=== PATIENT | female | born 1940 | race Caucasian/White ===

== ENCOUNTER 2018-04-16 06:53 | Inpatient (IN) | END 2018-04-21 20:12 | DRG 470 ==

== ENCOUNTER 2018-04-21 20:27 | Inpatient (IN) | END 2018-04-26 13:30 | disposition home health service (06) | DRG 560 ==

== ENCOUNTER 2018-05-21 11:49 | Observation (INO) | payer OTHER, MEDICARE ==
[2018-05-15 15:59] VITALS: BMI 28.3
[2018-05-21] VITALS (24 sets, daily range): BP systolic 119–193; BP diastolic 55–102; PULSE 74–108; RESP 11–31; Ht 149.9 cm; Wt 65.0 kg
[~2018-05-21] VITALS: Ht 149.9 cm; Wt 65.0 kg
--- NOTE | 2018-05-21 06:02 | HP ---
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 Musculoskeletal: back pain, bone/joint pain (History of total hip replacement recently. Also has history of low back surgery and fusion.) PMH/Family/Social Past Medical History Medications Current Medications Cefazolin Sodium/ Dextrose 50 ml @ 100 mls/hr PRE-OP ONCE IVPB ; Start 05/21/18 at 13:00; Stop 05/21/18 at 13:29 Tranexamic Acid 1000 mg/Dextrose 110 ml @ 200 mls/hr Pre-op ONCE IVPB ; Start 05/21/18 at 13:00; Stop 05/21/18 at 13:32 Sodium Chloride/ Tranexamic Acid INTRA-OP ONCE IRR ; Start 05/21/18 at 13:00; Stop 05/21/18 at 13:01 Bupivacaine HCl/ Morphine Sulfate/ Epinephrine/ Ketorolac Tromethamine/ Clonidine/Sodium Chloride/ Vancomycin HCl INTRA-OP IRR ; Start 05/21/18 at 13:00 Dexamethasone (Decadron) 2 mg PREOP ONCE PO ; Start 05/21/18 at 13:00; Stop 05/21/18 at 13:01 Gabapentin (Neurontin) 300 mg ONCE ONCE PO ; Start 05/21/18 at 13:00; Stop 05/21/18 at 13:01 Coded Allergies: adhesive tape (Verified Allergy, Unknown, 04/16/18) alcohol (Verified Allergy, Unknown, 04/16/18) ALLERGIES: MASTISOL TAPE AND LEVAQUIN PER ELO AT MD OFFICE 04/15 gum mastic (Verified Allergy, Unknown, 04/16/18) ALLERGIES: MASTISOL TAPE AND LEVAQUIN PER ELO AT MD OFFICE 04/15 levofloxacin (Verified Allergy, Unknown, 04/16/18) ALLERGIES: MASTISOL TAPE AND LEVAQUIN PER ELO AT MD OFFICE 04/15 methyl salicylate (Verified Allergy, Unknown, 04/16/18) ALLERGIES: MASTISOL TAPE AND LEVAQUIN PER ELO AT MD OFFICE 04/15 storax (Verified Allergy, Unknown, 04/16/18) ALLERGIES: MASTISOL TAPE AND LEVAQUIN PER ELO AT MD OFFICE 04/15 morphine (Verified Adverse Reaction, Intermediate, nausea and vomiting, 04/18/18) patient can tolerate percocet Past Surgical History History of total hip replacement as well as history of coronary artery disease and diabetes. Family History Significant Family History: no pertinent family hx Social History Alcohol Use: none Smoking Status: Never smoker Drug Use: none Exam/Review of Systems Vital Signs Vitals Blood pressure 160/80, respirations 24, heart rate 80 Exam Exam Healthy-appearing woman Psych: nl mood/affect, anxiety Musculoskeletal: range of motion (Patient has significant difficulty with ambulation. Clinically, her peroneal nerve distribution is dysfunctional with 3/5 strength.) Extremities: edema (She has moderate edema around the prior incision with a palpable area of swelling consistent with a small hematoma anteriorly.) COCO COLEMAN MD May 21, 2018 06:02
--- NOTE | 2018-05-21 06:02 | HPN ---
Date/Time of Note Date/Time of Note DATE: 05/21/18 TIME: 06:02 Interval H&P Admission Note Pt. seen H&P reviewed: No system changes COCO COLEMAN MD May 21, 2018 06:02
--- NOTE | 2018-05-21 06:07 | OPR ---
Date/Time of Note Date/Time of Note DATE: 05/21/18 TIME: 06:02 Operative Report Procedure Date: May 21, 2018 Preoperative Diagnosis Sciatic nerve palsy following total hip replacement, right hip Postoperative Diagnosis 1. Right hip sciatic nerve palsy 2. Right hip hematoma following total hip replacement Operation/Procedure Performed 1. Right hip sciatic nerve neurolysis Surgeon see signature line [employer] Dakotah Hernandez DO Anesthesia Type: general Estimated Blood Loss: 10 - 50 ml's Transfusion none Specimen None Grafts/Implants none Complications none Pt Condition Post Procedure: stable Disposition: PACU Procedure Description [employer] FLATBED DRIVER SURGEON: Dakotah Hernandez DO was asked to be present at my request as a result of the complexity associated with this procedure including positioning of the extremity, positioning of the instrumentation and protection of the neurovascular structures. In my opinion, the assistance offered by a neurosurgical physician assistant is insufficient and Dr. Hernandez should be compensated for his time. PROCEDURE IN DETAIL: Following the administration of general endotracheal anesthesia supplemented with a spinal anesthetic, the patient was placed in the left lateral decubitus position with all prominences in the axillary fold being padded. Examination revealed that the prior surgical wound was well-healed with no drainage. There is a small palpable swelling anterolaterally directly over that incision and slightly more posteriorly. The right lower extremity was then prepped and draped in the usual sterile fashion. Attention was directed to the lateral aspect where an incision was then made directly over the lateral buttocks. The incision was carried through subcutaneous tissues and a hematoma was then evacuated from the more anterior a spect of the wound. This was approximately 50 cc of what appeared to be old blood. Further laterally and posteriorly, the iliotibial band was then incised and the posterior aspect of the hip evaluated. Further fluid was then evacuated from the area consistent with a long-standing hematoma from the prior procedure. The sciatic nerve was then evaluated this was noted to have a moderate amount of scar around the nerve along the trochanter. It was mobilized very carefully with most of the perineural fat being preserved. Proximally, the area was then evaluated all the way up to the sciatic notch where the piriformis was elevated and seen to have no significant tight tissue around it. Distally, the sciatic nerve was then mobilized all the way below the area of the radius brett sling. There is no significant distal entrapment. The wound was then thoroughly irrigated once again. Closure was obtained with a series of #2 deep stitches for closure of the soft tissues followed by closure of the subcutaneous tissues using 2-0 Vicryl. Skin was closed using 4-0 Monocryl and subsequently a Prenio dressing was applied. Estimated blood loss for the procedure was 50 cc. COCO COLEMAN MD May 21, 2018 06:07
[~2018-05-21 11:49] MED LIST: DESFLURANE 15 MIN ONE; DOXY100T20 PO; PRED5TAB PO
[2018-05-21] MEDS ORDERED: ZOLP12.54 PO (12:24)
[2018-05-21] MEDS ORDERED: TRANEXAMIC ACID 1,000 MG in DEXTROSE 5% 100 ML IVPB ONE (13:00)
[2018-05-21] MEDS ORDERED: SOD CHLORIDE 0.9% 100 ML, TRANEXAMIC ACID 3,000 MG IRR ONE ×2 (13:00)
[2018-05-21] MEDS ORDERED: GABAPENTIN 300 MG CAP PO ONE (13:00)
[2018-05-21] MEDS ORDERED: DEXAMETHASONE 1 MG TAB PO ONE (13:00)
[2018-05-21] MEDS ORDERED: CEFAZOLIN 2 GM/50 ML (PMX) 50 ML IVPB ONE (13:00)
[2018-05-21] MEDS ORDERED: BUPIVACAINE 0.5% (SDV) 30 ML, morphine SULFATE (PF) 8 MG, EPINEPHrine 0.3 MG, KETOROLAC... IRR SCH ×7 (13:00)
[2018-05-21] MEDS ORDERED: HYDROmorphONE 0.5 MG/0.5 ML SYG IV SCH (13:19)
[2018-05-21] MEDS ORDERED: HYDROmorphONE 1 MG/ML SYG IV SCH (13:28)
[2018-05-21] MEDS: HYDROmorphONE 0.5 MG/0.5 ML SYG IV SCH ×2 (13:46→14:06)
[2018-05-21] MEDS ORDERED: PROPOFOL 20 ML ONE (15:06)
[2018-05-21] MEDS ORDERED: ROCURONIUM 50 MG INJ ONE (15:06)
[2018-05-21] MEDS ORDERED: CEFAZOLIN 1 GM INJ ONE (15:06)
[2018-05-21] MEDS ORDERED: NEOSTIGMINE 3 MG/3 ML SYRINGE ONE (15:06)
[2018-05-21] MEDS ORDERED: GLYCOPYRROLATE 0.4 MG INJ ONE (15:06)
[2018-05-21] MEDS ORDERED: MIDAZOLAM 1 MG/ML 2 ML INJ ONE (15:07)
[2018-05-21] MEDS ORDERED: ONDANSETRON 4 MG INJ ONE (15:07)
[2018-05-21] MEDS ORDERED: DEXAMETHASONE 4 MG/ML 1 ML INJ ONE (15:07)
[2018-05-21] MEDS ORDERED: FENTAnyl 50 MCG/ML VIAL ONE (15:07)
--- NOTE | 2018-05-21 15:36 | PREAC ---
Date/Time of Note Date/Time of Note DATE: 05/21/18 TIME: 15:35 Anesthesia Eval and Record Evaluation Time Pre-Procedure Interview DATE: 05/21/18 TIME: 15:35 Age 78 Sex female NPO: 8 hrs Preoperative diagnosis right sciatica Planned procedure right hip open sciatic neurolysis Past Medical History Past Medical History: Includes (polymyalgia rheumatica) Surgery & Anesthesia Issues No known issue Meds Anticoagulation: No Beta Sarika within 24 hr: No Reason Beta Sarika not given: Pt. not on B-Sarika Reported Medications Zolpidem Tartrate* (Zolpidem Tartrate* ER) 12.5 Mg Tab.mphase, 12.5 MG PO HS PRN for INSOMNIA, #30 TAB.SA 05/21/18 Prednisone* (Prednisone*) 5 Mg Tab, 5 MG PO DAILY, TAB 04/16/18 Discontinued Reported Medications Doxycycline Hyclate* (Doxycycline Hyclate*) 100 Mg Tablet.dr, 100 MG PO BID, TAB STARTED 04-14-18 FOR 5 DAYS 04/16/18 Current Medications Bupivacaine HCl/ Morphine Sulfate/ Epinephrine/ Ketorolac Tromethamine/ Clonidine/Sodium Chloride/ Vancomycin HCl INTRA-OP IRR ; Start 05/21/18 at 13:00 Meds reviewed: Yes Allergies Coded Allergies: adhesive tape (Verified Allergy, Unknown, 05/21/18) alcohol (Verified Allergy, Unknown, 05/21/18) ALLERGIES: MASTISOL TAPE AND LEVAQUIN PER ELO AT MD OFFICE 04/15 gum mastic (Verified Allergy, Unknown, 05/21/18) ALLERGIES: MASTISOL TAPE AND LEVAQUIN PER ELO AT MD OFFICE 04/15 levofloxacin (Verified Allergy, Unknown, 05/21/18) ALLERGIES: MASTISOL TAPE AND LEVAQUIN PER ELO AT MD OFFICE 04/15 methyl salicylate (Verified Allergy, Unknown, 05/21/18) ALLERGIES: MASTISOL TAPE AND LEVAQUIN PER ELO AT MD OFFICE 04/15 storax (Verified Allergy, Unknown, 05/21/18) ALLERGIES: MASTISOL TAPE AND LEVAQUIN PER ELO AT MD OFFICE 04/15 morphine (Verified Adverse Reaction, Intermediate, nausea and vomiting, 05/21/18) patient can tolerate percocet Allergies Reviewed: Yes Labs/Studies Labs Reviewed: Reviewed by anesthesiologist Result Diagram: 05/21/18 1310 05/21/18 1310 Laboratory Tests 05/21/18 13:10 test: N/A Studies: ECG (nl), CXR (elevated right hemidiaphragm) Pre-procedure Exam Last vitals Vital Signs Date Temp Pulse Resp B/P (MAP) Pulse Ox O2 O2 Flow FiO2 Time Delivery Rate 05/21/18 97.8 91 20 140/68 99 14:41 (92) Airway: Adequate mouth opening, Adequate thyromental dist Mallampati: Mallampati II Teeth: Normal Lung: Normal Heart: Normal ASA Physical Status ASA physical status: 2 Emergency: None Planned Anesthetic General/MAC: ETT Pre-operative Attestations Prior to commencing anesthesia and surgery, the patient was re-evaluated, there was verification of: *The patient's identity *The results of appropriate recent lab work and preoperative vital signs *The above evaluation not changing prior to induction *Anesthetic plan, risk benefits, alternative and complications discussed with patient/family; questions answered; patient/family understands, accepts and wishes to proceed. Jose Chaudhary M.D. May 21, 2018 15:36
[2018-05-21] MEDS ORDERED: IPRATROPIUM (NEB) 0.5 MG/2.5 ML AMP HHN PRN (16:00)
[2018-05-21] MEDS ORDERED: MIDAZOLAM 1 MG/ML 2 ML INJ IV PRN (16:00)
[2018-05-21] MEDS ORDERED: ALBUTEROL 0.083% (NEB) 2.5 MG/3 ML AMP HHN PRN (16:00)
[2018-05-21] MEDS ORDERED: EPHEDrine SULFATE 50 MG/5 ML SYG IV PRN (16:00)
[2018-05-21] MEDS ORDERED: FENTAnyl 50 MCG/ML VIAL IV PRN ×3 (16:00)
[2018-05-21] MEDS ORDERED: DIPHENHYDRAMINE 50 MG INJ IV PRN ×2 (16:00→17:30)
[2018-05-21] MEDS ORDERED: MEPERIDINE 25 MG INJ IV PRN (16:00)
[2018-05-21] MEDS ORDERED: hydrALAzine 20 MG INJ IV PRN (16:00)
[2018-05-21] MEDS ORDERED: HYDROmorphONE 1 MG/5 ML IV SYRINGE IV PRN ×3 (16:00)
[2018-05-21] MEDS ORDERED: LABETALOL HCL 20MG INJ IV PRN (16:00)
[2018-05-21] MEDS ORDERED: ONDANSETRON 4 MG INJ IV PRN ×2 (16:00→17:30)
[2018-05-21] MEDS ORDERED: TRIMETHOBENZAMIDE 100 MG/ML VIAL IM PRN (16:00)
--- NOTE | 2018-05-21 17:20 | PAC ---
Date/Time of Note Date/Time of Note DATE: 05/21/18 TIME: 17:20 Post-Anesthesia Notes Post-Anesthesia Note Last documented vital signs Vital Signs Date Temp Pulse Resp B/P (MAP) Pulse Ox O2 O2 Flow FiO2 Time Delivery Rate 05/21/18 97.8 91 20 140/68 99 14:41 (92) Activity: WNL Respiratory function: WNL Cardiovascular function: WNL Mental status: Baseline Pain reasonably controlled: Yes Hydration appropriate: Yes Nausea/Vomiting absent: Yes Jose Chaudhary M.D. May 21, 2018 17:20
[2018-05-21] MEDS ORDERED: ZOLPIDEM 5 MG TAB PO PRN (17:30)
[2018-05-21] MEDS ORDERED: MAGNESIUM HYDROXIDE 30ML CUP PO PRN (17:30)
[2018-05-21] MEDS ORDERED: oxyCODONE 5 MG TAB PO PRN (17:30)
[2018-05-21] MEDS ORDERED: NACL 0.9% 3 ML SYG IV SCH (17:30)
[2018-05-21] MEDS: DEXAMETHASONE 2 MG TAB PO SCH ×2 (17:44→23:26)
[2018-05-21] MEDS: CEFAZOLIN 1 GM/50 ML (PMX) 50 ML IVPB SCH (17:45)
--- NOTE | 2018-05-21 18:14 | NUR ---
PACU NOTES: PATIENT AWAKE AND ALERT. ON ROOM AIR 99% S/P RIGHT HIP OPEN SCIATIC NEUROLYSIS WITH PRENEO DRESSING NO BLEEDING NO DRAIN, ABLE TO MOVE AND REPOSITION SELF, W/ COMPLAIN OF PAIN MEDICATED WITH FENATANYL AND DILAUDID IV. ZOFRAN 4 MG IV GIVEN. ICE PACK IN PLACED. TOLERATED P.O FLUIDS W/ MEDICATION.BEDPAN GIVEN ABLE TO VOID ABOUT 20 ML. NEEDS ATTENDED. SCD PLACED. FAMILY NOTIFIED OF TRANSFER TO ROOM 408. PAIN RELIEVED 06/28.
--- NOTE | 2018-05-21 18:30 | NUR ---
NRSG NOTE Report received from Sasha in pacu. Will send pt at 1930. Will endorse to lieutenant shift supervisor RN.
--- NOTE | 2018-05-21 19:41 | RADRPT ---
Vent Rate: 81 bpm RR Interval: 0 msec MI Interval: 136 msec QRS Duration: 76 msec QT Interval: 372 msec QTC Interval: 432 msec P-R-T [place]: 43 - 28 - 40 degrees Sinus rhythm with premature atrial complexes Otherwise normal ECG Electronically Signed By: Neel Szymanski [id number]
[2018-05-21] MEDS: HYDROmorphONE 1 MG/ML SYG IV PRN (21:30)
[2018-05-21] MEDS: ACETAMINOPHEN 1000MG/100ML IV 100 ML IVPB SCH (21:30)
[2018-05-21] MEDS: GABAPENTIN 300 MG CAP PO SCH (21:31)
[2018-05-21] MEDS: LACTATED RINGER'S 1,000 ML IV SCH (21:31)
[2018-05-21] MEDS: SENNA/DOCUSATE NA (8.6MG/50MG) TAB PO SCH (21:31)
--- NOTE | 2018-05-21 22:26 | NUR ---
PT ARRIVED TO THE UNIT FROM PACU WITH VSS. PT HAD NO C/O PAIN, PT WAS ORIENTED TO THE ROOM, CALL RAMON PLACED NEAR PT AND POST -OP VS PER PROTOCOL WAS INITIATED, WILL CONT PLAN OF CARE FOR PT.
[2018-05-22 00:10] VITALS: BP 148/68; PULSE 78; RESP 20
[2018-05-22] MEDS: HYDROmorphONE 1 MG/ML SYG IV PRN (01:36)
[2018-05-22] MEDS: CEFAZOLIN 1 GM/50 ML (PMX) 50 ML IVPB SCH ×2 (01:36→09:49)
[2018-05-22] MEDS: LACTATED RINGER'S 1,000 ML IV SCH ×4 (03:04→21:35)
--- NOTE | 2018-05-22 04:46 | NUR ---
END OF SHIFT: PT IS POD #1 S/P RIGHT HIP SCIATICNEUROLYSIS. PT DSG REMAINS C/D/I THIS SHIFT. PTS PAIN WAS CONTROLLED WITH CURRENT PAIN REGIME. PT IS DUE TO HAVE PT EVAL THIS MORNING WILL CONT PLAN CARE FOR PT.
[2018-05-22] MEDS: DEXAMETHASONE 2 MG TAB PO SCH ×2 (05:27→12:51)
[2018-05-22] MEDS: ACETAMINOPHEN 1000MG/100ML IV 100 ML IVPB SCH ×2 (05:27→15:29)
--- NOTE | 2018-05-22 05:48 | PDOCDIS ---
Discharge Instructions DIAGNOSIS Discharge Diagnosis Sciatic nerve entrapment CONDITION [id number] Patient Condition: Epuck1r Good HOME CARE INSTRUCTIONS: [id number] Diet Instructions: [id number] Regular Ebypa2Hz Special Diet: Tculo3l CLEAR LIQUID ACTIVITY: [id number] Activity Restrictions: [id number] No Restrictions [id number] Bathing Restrictions: [id number] Shower FOLLOW UP/APPOINTMENTS Follow-up Plan 2 weeks in the office SCHOOL/WORK RELEASE May return to School/Work with: With Restrictions School/Work Release Comment: Assistive devices as necessary COCO COLEMAN MD May 22, 2018 05:48
--- NOTE | 2018-05-22 05:49 | DS ---
Date/Time of Note Date/Time of Note DATE: 05/22/18 TIME: 05:48 Discharge Summary Admission/Discharge Info Admit Date/Time May 21, 2018 at 17:06 Discharge Date/Time May 22, 2018 Discharge Diagnosis Sciatic nerve entrapment Patient Condition: Good Hx of Present Illness History of right lower extremity sciatic nerve palsy following total hip r eplacement Hospital Course Patient underwent uncomplicated procedure. Underwent therapy the next morning and was discharged Home Meds Reported Medications Zolpidem Tartrate* (Zolpidem Tartrate* ER) 12.5 Mg Tab.mphase, 12.5 MG PO HS PRN for INSOMNIA, #30 TAB.SA 05/21/18 Prednisone* (Prednisone*) 5 Mg Tab, 5 MG PO DAILY, TAB 04/16/18 Discontinued Reported Medications Doxycycline Hyclate* (Doxycycline Hyclate*) 100 Mg Tablet.dr, 100 MG PO BID, TAB STARTED 04-14-18 FOR 5 DAYS 04/16/18 Follow-up Plan 2 weeks in the office Primary Care Provider Care Physician No Primary Pending Labs Laboratory Tests Test 05/21/18 13:10 White Blood Count 8.0 10^3/ul (4.8-10.8) Red Blood Count 3.99 10^6/ul (4.20-5.40) Hemoglobin 12.1 g/dl (12.0-16.0) Hematocrit 36.2 % (37.0-47.0) Mean Corpuscular Volume 90.7 fl (82.0-101.0) Mean Corpuscular Hemoglobin 30.3 pg (29.0-33.0) Mean Corpuscular Hemoglobin Concent 33.4 g/dl (32.0-37.0) Red Cell Distribution Width 13.3 % (11.5-14.5) Platelet Count 222 10^3/UL (140-415) Mean Platelet Volume 10.1 fl (7.4-10.4) Immature Granulocytes % 0.400 % (0.001-0.429) Neutrophils % 76.3 % (39.0-77.0) Lymphocytes % 15.8 % (15.0-51.0) Monocytes % 6.3 % (0.0-11.0) Eosinophils % 0.4 % (0.0-7.0) Basophils % 0.8 % (0.0-2.0) Nucleated Red Blood Cells % 0.0 /100WBC (0.0-0.0) Immature Granulocytes # 0.030 10^3/ul (0.0-0.031) Neutrophils # 6.1 10^3/ul (1.6-7.5) Lymphocytes # 1.3 10^3/ul (0.8-2.9) Monocytes # 0.5 10^3/ul (0.3-0.9) Eosinophils # 0.0 10^3/ul (0.0-0.5) Basophils # 0.1 10^3/ul (0.0-0.1) Nucleated Red Blood Cells # 0.0 10^3/ul (0.0-0.0) Prothrombin Time 13.1 Sec (11.9-14.9) Prothrombin Time Ratio 1.0 INR International Normalized Ratio 0.98 Activated Partial Thromboplast Time 35.0 Sec (23.0-35.0) Sodium Level 139 mmol/L (135-144) Potassium Level 3.4 mmol/L (3.5-5.1) Chloride Level 108 mmol/L (97-110) Carbon Dioxide Level 22 mmol/L (21-31) Anion Gap 9 (5-13) Blood Urea Nitrogen 27 mg/dl (7-20) Creatinine 0.62 mg/dl (0.44-1.00) Est Glomerular Filtrat Rate mL/min mL/min (>60) Glucose Level 111 mg/dl (70-220) Calcium Level 10.2 mg/dl (8.4-10.2) COCO COLEMAN MD May 22, 2018 05:49
--- NOTE | 2018-05-22 05:50 | PN ---
Date/Time of Note Date/Time of Note DATE: 05/22/18 TIME: 05:49 Subjective Awake and alert this morning. Overall, she states that she feels a lot less pain. She is starting to feel her toes better and is not having any significant searing pain. I explained to her the situation and feel that her nerve was probably trapped and perhaps she had a hematoma postoperatively that created the nerve issue. With the decompression, she will hopefully improve over the next few weeks and continue to make progress. Objective Vitals Vital Signs Date Temp Pulse Resp B/P (MAP) Pulse Ox O2 O2 Flow FiO2 Time Delivery Rate 05/22/18 98.3 78 20 148/68 95 00:10 (94) 05/21/18 Nasal 2.0 22:07 Cannula Intake and Output 05/21/18 05/21/18 05/22/18 1515:00 23:00 07:00 IntakeIntake Total 970 ml 150 ml OutputOutput Total 120 ml 300 ml BalanceBalance 850 ml -150 ml Wound is clean and dry. Neurologically, There are no signs of DVT. Results Result Diagram: 05/21/18 1310 05/21/18 1310 Medications Medications Current Medications Prednisone (Prednisone) 5 mg DAILY PO ; Start 05/22/18 at 09:00 Lactated Ringer's 1,000 ml @ 100 mls/hr Q10H IV Last administered on 05/21/18at 21:31; Admin Dose 100 MLS/HR; Start 05/21/18 at 17:04 Cefazolin Sodium 50 ml @ 100 mls/hr Q8H IVPB Last administered on 05/22/18at 01:36; Admin Dose 100 MLS/HR; Start 05/21/18 at 17:30; Stop 05/22/18 at 09:59 Senna/Docusate Sodium (Senokot-S) 1 tab BID PO Last administered on 05/21/18at 21:31; Admin Dose 1 TAB; Start 05/21/18 at 21:00 Simethicone (Mylicon) 80 mg TID PRN PO DISTENSION/GAS/BLOATING; Start 05/21/18 a t 17:30 Magnesium Hydroxide (Milk Of Mag) 30 ml BID PRN PO CONSTIPATION; Start 05/21/18 at 17:30 Magnesium Hydroxide (Milk Of Mag) 30 ml HS PO ; Start 05/23/18 at 21:00 Dexamethasone (Decadron) 2 mg Q6 PO Last administered on 05/22/18at 05:27; Admin Dose 2 MG; Start 05/21/18 at 18:00; Stop 05/22/18 at 12:01 Gabapentin (Neurontin) 300 mg HS PO Last administered on 05/21/18at 21:31; Admin Dose 300 MG; Start 05/21/18 at 21:00 Acetaminophen 100 ml @ 400 mls/hr Q8 IVPB Last administered on 05/22/18at 05:27; Admin Dose 400 MLS/HR; Start 05/21/18 at 22:00; Stop 05/22/18 at 14:14 Oxycodone HCl (Roxicodone) 15 mg Q4H PRN PO PAIN; Start 05/21/18 at 17:30 Oxycodone HCl (Roxicodone) 10 mg Q4H PRN PO PAIN; Start 05/21/18 at 17:30 Oxycodone HCl (Roxicodone) 5 mg Q4H PRN PO PAIN; Start 05/21/18 at 17:30 Hydromorphone HCl (Dilaudid) 1 mg Q4H PRN IV BREAKTHROUGH PAIN Last administered on 05/22/18at 01:36; Admin Dose 1 MG; Start 05/21/18 at 17:30 Ondansetron HCl (Zofran Inj) 4 mg Q6H PRN IV NAUSEA AND/OR VOMITING; Start 05/21/18 at 17:30 Diphenhydramine HCl (Benadryl) 25 mg Q6H PRN IV PRURITUS; Start 05/21/18 at 17:30 Zolpidem Tartrate (Ambien) 10 mg HS PRN PO INSOMNIA; Start 05/21/18 at 17:30 IV Flush (NS 3 ml) 3 ml per protocol IV ; Start 05/21/18 at 17:30 Aspirin (Ecotrin) 325 mg DAILY PO ; Start 05/22/18 at 09:00 VTE Prophylaxis Risk score (from Nsg)>0 risk: 10 SCD applied (from Nsg): Yes SCD contraindication: low risk/ambulating Lines/Catheters IV Catheter Type: Saline Lock Zaman in Place: No Assessment/Plan Hospital Course Patient underwent uncomplicated procedure. Underwent therapy the next morning and was discharged Assessment/Plan Assessment: Status post sciatic neuro lysis following total hip replacement Plan: She will begin to ambulate and progress later today. She will be discharged if she is cleared by therapy. COCO COLEMAN MD May 22, 2018 05:50
[2018-05-22 07:46] VITALS: BP 143/69; PULSE 72; RESP 18
[2018-05-22] MEDS: predniSONE 5 MG TAB PO SCH (09:10)
[2018-05-22] MEDS: ASPIRIN (EC) 325 MG TAB PO SCH (09:10)
[2018-05-22] MEDS: oxyCODONE 5 MG TAB PO PRN ×5 (09:13→23:18)
--- NOTE | 2018-05-22 09:31 | NUR ---
no senna/colace available, pharmacy [facility] and will deliver. Patient aware RN will give when pharmacy delivers.
[2018-05-22] MEDS: SENNA/DOCUSATE NA (8.6MG/50MG) TAB PO SCH ×2 (09:51→21:25)
--- NOTE | 2018-05-22 11:20 | NUR ---
PT [facility] Patient: Montse Michel : 1940 Age/Sex: 78/F Unit#: [id number] Room/Bed: 408/A User: Allen Bergeron PT Date: 05/22/18 11:16 Type: PT Technical Record Therapy day number 1 Evaluation Start Time 10:25 Evaluation Total Time 0 min Subjective Denies pain Pain Scale NUMERIC Pain Intensity 0 (0-10) Patient Stated Goal for Pain Relief 0 (0-10) Pain Level Comment denies pain Pre Treatment Vital Signs Stable Yes Exercise Assessment Label Bilat Lower Extremity Exercise Type Active ROM Additional Exercise Comments seated B APs, heel slides Supine to Sit Minimum Assist Transfer Sit to Stand Ability Contact Guard Assist Bed Mobility Sit to Supine Moderate Assist Bed Transfer Ability Contact Guard Assist Chair Transfer Ability Contact Guard Assist Toileting Ability Supervised Sitting Tolerance 25 min Additional Mobility Comments transfer with FWW Patient uses wheelchair Not Applicable Gait Assist Levels Minimum Assist Assistive Devices Front Wheel Walker Ambulation Distance 1 feet Additional Gait Comments stand-step transfer; gait TBA when pt brings AFO/ankle brace Weight Bearing Assessment Label Bilat Lower Extremity Weight Bearing Status Weight Bearing as Naima Additional Stairs Assist Comments TBA Static Sitting Balance Good Dynamic Sitting Balance Fair plus Standing Static Balance Fair Dynamic Standing Balance Fair Additional Balance Assessments Comments with FWW Safety Judgement Fair Activity Tolerance Fair Equipment Present A pump IV pump Post Treatment Pain Intensity 0 0-10 Variance Documentation SEE PT EVAL NOTE PT Technical Record Comment PT EVAL Pt is a 78 yo F with PMH of CAD, DM, recent R ROCK (04/16/18) anterior approach with acute sciatic nerve palsy who is now S/P R hip sciatic nerve lysis. Pt received in 4W, med/surg. Precautions: fall precautions, anterior hip precautions (no hip ext 6 weeks from 04/16/18) PLOF: Pt lives with spouse in 3-story town home with flight of stairs to enter (railing on R when ascending). Pt ambulatory with pediatric FWW, occassionaly with SPC, and used a AFO/ankle brace due to foot drop. Pt owns a shower chair and has shower bars installed. Assistance to negotiate stairs at home, reporting her family carried her up upon d/c home from previous hospitalization. CLOF: RAHEL Fiore cleared pt for PT evaluation. Pt received in bed, vitals assessed and stable, agreeable to PT eval. Pt educated in purpose of PT eval and WB status (WBAT). Noted with ROM/strength assessment, pt with R foot drop, limited R knee and hip ROM due to increased pain with movement (pt pre-medicated). Pt did not have AFO present in room, reported will bring it later. bed mobility and tranfser training as descibed above. Noted with transfer (stand-step using FWW), pt with difficulty bearing weight in R LE, preferring to pivot/twist on L LE to proceed forward. Pt educated in using B UE to unload R LE and reduce pain. Noted pt urinated during transfer to commode, pt cleansed, urinated in commode, and returned to bed with bed alarm activated, all needs in reach, no signs of distress. RN notified of pt's status. Recommendation: Pt mobility limited due to R hip/LE pain, requiring min-modA for bed mobility tasks and Austin to perform transfer to bedside commode. Gait training limited due to pt without AFO/ankle brace at this time. Pt hesitant to bear weight in R LE and actively lift R LE for bed mobility. Pt will benefit from additional skilled PT for further mobility training. Gait/stairs TBA. D/c recommendation pending pt progress. Pt already owns FWW, shower chair; may benefit from 3:1 commode. plan: Continue c PT POC ( BID x 6), stair and gait training in pm. PT CLEARED TO TRANSFER TO BEDSIDE COMMODE WITH RELAY SHOP SUPERVISOR
[2018-05-22 14:00] VITALS: BP 127/58; PULSE 74; RESP 18
--- NOTE | 2018-05-22 15:20 | NUR ---
PT NOTE Therapy day number 1 Subjective Current complaint of pain Pain Scale FACES Pain Intensity 5 (0-10) Patient Stated Goal for Pain Relief 0 (0-10) Pain Level Comment R hip Pre Treatment Vital Signs Stable Yes Exercise Assessment Label Bilat Lower Extremity Exercise Type Active ROM Additional Exercise Comments semi-supine B APs (R AAROM), heel slides Exercise Start Time 14:10 Exercise End Time 14:19 Total Exercise Time 9 min (8-127) Transfer Training Start Time 14:19 Supine to Sit Stand by Assist Transfer Sit to Stand Ability Stand by Assist Bed Mobility Sit to Supine Contact Guard Assist Bed Transfer Ability Stand by Assist Chair Transfer Ability Stand by Assist Toileting Ability Modified Independent Sitting Tolerance 20 min Additional Mobility Comments transfer with FWW, AFO Transfer Training End Time 14:49 Total Transfer Training Time 30 min (8-127) Gait Training Start Time 14:49 Gait Assist Levels Stand by Assist Assistive Devices Front Wheel Walker Ambulation Distance 70 feet Additional Gait Comments step-to gait pattern, antalgic, steady, stable, increased UE support Gait Training End Time 15:05 Total Gait Training Treatment Time 16 min (8127) Weight Bearing Assessment Label Bilat Lower Extremity Weight Bearing Status Weight Bearing as Naima Stair Training Start Time 15:05 Stair Climbing Ability Moderate Assist Number of Stairs 4 Stairs Additional Stairs Assist Comments 4 steps and 3 steps with sitting rest break, see PT note for details Stair Training End Time 15:20 Total Stair Training Time 15 min (8127) Static Sitting Balance Good Dynamic Sitting Balance Good Standing Static Balance Fair plus Dynamic Standing Balance Fair plus Additional Balance Assessments Comments with FWW Safety Judgement Fair Activity Tolerance Good Equipment Present A pump IV pump Additional Equipment Present R AFO Post Treatment Pain Intensity 5 0-10 Variance Documentation SEE PT NOTE Total Treament Time 70 min (8127) Total Minutes 70 Total Units 5 PT Technical Record Comment PT NOTE S: Pt reported feeling better than morning O: Pt received in bed, vitals assessed and stable, agreeable to PT session. Pt participated in interventions above, including: transfer x 2 from bed to bedside commode using FWW, toileting with SPV using bedside commode, ambulation of 70' with FWW and AFO, stair training 4 steps and 3 steps with sitting rest break. Noted with stair training pt using R railing with B UE, step-to gait pattern, decreased balance/increased R LE pain with R stance, 1 LOB with modA to correct, number of steps limited due to pt fatigue. Pt returned to bed, all needs in reach, bed alarm activated, no signs of distress. RN notified of pt's functional status. A: Pt with significant improvement in bed mobility, transfers, and gait compared to morning, now presenting at SBA level for these tasks. Improved gait with use of AFO and FWW (70'). Pt with moderate balance deficits when negotiating steps with 1 LOB requiring modA to correct and requiring Austin and close guarding, especially when ascending. Pt only tolerated total of 7 steps this session with a sitting rest break, note that pt has a 20 step stair case in home to bedroom. D/C recommendation per MD recommendation, pt may need 3:1 commode with d/c home. Plan: Continue c PT POC, continue stair training, family training on guarding pt when ascending and descending steps PT CLEARED TO AMB TO RESTROOM WITH NURSING STAFF AND FWW
[2018-05-22 20:40] VITALS: BP 122/62; PULSE 77; RESP 20
[2018-05-22] MEDS: GABAPENTIN 300 MG CAP PO SCH (21:25)
--- NOTE | 2018-05-23 00:43 | NUR ---
REPORT GIVEN TO HORTENCIA MCGINNIS FOR CONTINUITY OF CARE. PT IN BED DOZING OFF, NO SS DISCOMFORT NOTED.
[2018-05-23 02:00] VITALS: BP 120/61; PULSE 74; RESP 18
--- NOTE | 2018-05-23 06:38 | NUR ---
NRSG NOTE: RECEIVED PT FROM RAYMUNDO MCGINNIS IN STABLE CONDITION. NO ACUTE DISTRESS. NO SOB. VSS. DENIES PAIN. ASSISTED TO BEDSIDE COMMODE NEEDED. PAIN MGMT EFFECTIVE. RESTING COMFORTABLY. CONTINUE DISCHARGE PLANNING TODAY
[2018-05-23 07:51] VITALS: BP 141/70; PULSE 69; RESP 18
[2018-05-23] MEDS: LACTATED RINGER'S 1,000 ML IV SCH (09:04)
[2018-05-23] MEDS: ASPIRIN (EC) 325 MG TAB PO SCH (09:15)
[2018-05-23] MEDS: SENNA/DOCUSATE NA (8.6MG/50MG) TAB PO SCH (09:15)
[2018-05-23] MEDS: predniSONE 5 MG TAB PO SCH (09:15)
[2018-05-23] MEDS: oxyCODONE 5 MG TAB PO PRN ×2 (09:16→13:38)
--- NOTE | 2018-05-23 09:21 | PN ---
Date/Time of Note Date/Time of Note DATE: 05/23/18 TIME: 09:20 Subjective Comfortable this morning. Ready to begin ambulation independently. She feels a lot more comfortable resting. In addition, she has not had any of the significant radiation pain that she was feeling preoperatively. Objective Vitals Vital Signs Date Temp Pulse Resp B/P (MAP) Pulse Ox O2 O2 Flow FiO2 Time Delivery Rate 05/23/18 98.5 69 18 141/70 96 07:51 (93) 05/21/18 Nasal 2.0 22:07 Cannula Intake and Output 05/22/18 05/22/18 05/23/18 1515:00 23:00 07:00 IntakeIntake Total 250 ml 1400 ml 1140 ml OutputOutput Total 300 ml BalanceBalance 250 ml 1100 ml 1140 ml Her wound is clean and dry. Neurologically, she has no radiating pain. She has slight decreased sensation distally, which she feels is improving. In addition, motor function is 3/5 for dorsiflexion. There are no signs of DVT Results Result Diagram: 05/21/18 1310 05/21/18 1310 Medications Medications Current Medications Prednisone (Prednisone) 5 mg DAILY PO Last administered on 05/23/18at 09:15; Admin Dose 5 MG; Start 05/22/18 at 09:00 Lactated Ringer's 1,000 ml @ 100 mls/hr Q10H IV Last administered on 05/22/18at 21:35; Admin Dose 100 MLS/HR; Start 05/21/18 at 17:04 Senna/Docusate Sodium (Senokot-S) 1 tab BID PO Last administered on 05/23/18at 09:15; Admin Dose 1 TAB; Start 05/21/18 at 21:00 Simethicone (Mylicon) 80 mg TID PRN PO DISTENSION/GAS/BLOATING; Start 05/21/18 at 17:30 Magnesium Hydroxide (Milk Of Mag) 30 ml BID PRN PO CONSTIPATION; Start 05/21/18 at 17:30 Magnesium Hydroxide (Milk Of Mag) 30 ml HS PO ; Start 05/23/18 at 21:00 Gabapentin (Neurontin) 300 mg HS PO Last administered on 05/22/18at 21:25; Admin Dose 300 MG; Start 05/21/18 at 21:00 Oxycodone HCl (Roxicodone) 15 mg Q4H PRN PO PAIN Last administered on 05/22/18at 12:52; Admin Dose 15 MG; Start 05/21/18 at 17:30 Oxycodone HCl (Roxicodone) 10 mg Q4H PRN PO PAIN Last administered on 05/23/18at 09:16; Admin Dose 10 MG; Start 05/21/18 at 17:30 Oxycodone HCl (Roxicodone) 5 mg Q4H PRN PO PAIN; Start 05/21/18 at 17:30 Hydromorphone HCl (Dilaudid) 1 mg Q4H PRN IV BREAKTHROUGH PAIN Last administered on 05/22/18at 01:36; Admin Dose 1 MG; Start 05/21/18 at 17:30 Ondansetron HCl (Zofran Inj) 4 mg Q6H PRN IV NAUSEA AND/OR VOMITING; Start 05/21/18 at 17:30 Diphenhydramine HCl (Benadryl) 25 mg Q6H PRN IV PRURITUS Last administered on 05/23/18at 02:47; Admin Dose 25 MG; Start 05/21/18 at 17:30 Zolpidem Tartrate (Ambien) 10 mg HS PRN PO INSOMNIA; Start 05/21/18 at 17:30 IV Flush (NS 3 ml) 3 ml per protocol IV ; Start 05/21/18 at 17:30 Aspirin (Ecotrin) 325 mg DAILY PO Last administered on 05/23/18at 09:15; Admin Dose 325 MG; Start 05/22/18 at 09:00 VTE Prophylaxis Risk score (from Nsg)>0 risk: 6 SCD applied (from Nsg): Yes Lines/Catheters IV Catheter Type: Saline Lock Zaman in Place: No Assessment/Plan Hospital Course Patient underwent uncomplicated procedure. Underwent therapy the next morning and was discharged Assessment/Plan Assessment: Status post neural lysis Plan: Independently ambulatory then discharge. COCO COLEMAN MD May 23, 2018 09:21
--- NOTE | 2018-05-23 11:28 | NUR ---
PT NOTE [facility] Patient: Montse Michel : 1940 Age/Sex: 78/F Unit#: [id number] Room/Bed: 408/A User: Joleen Segovia PTA Date: 05/23/18 11:02 Type: PT Technical Record Therapy day number 2 Subjective Current complaint of pain Pain Scale NUMERIC Pain Intensity 5 (0-10) Patient Stated Goal for Pain Relief 0 (0-10) Pain Level Comment R hip burning with ambulation; premedicated Exercise Assessment Label Bilat Lower Extremity Exercise Type Active Assist ROM Additional Exercise Comments seated ankle plantarflexion/dorsiflexion/inv/ev Transfer Training Start Time 11:02 Supine to Sit Stand by Assist Transfer Sit to Stand Ability Supervised Bed Transfer Ability Stand by Assist Additional Mobility Comments HOB elevated, max A to venancio shoes and AFO, STS with FWW, left in chair Transfer Training End Time 11:12 Total Transfer Training Time 10 min (8-127) Patient uses wheelchair Not Applicable Gait Training Start Time 11:13 Gait Assist Levels Stand by Assist Assistive Devices Front Wheel Walker Ambulation Distance 175 feet Additional Gait Comments 3 point gait, no LOB, decreased alisia Gait Training End Time 11:28 Total Gait Training Treatment Time 15 min (8-127) Weight Bearing Assessment Label Bilat Lower Extremity Weight Bearing Status Weight Bearing as Naima Static Sitting Balance Good Dynamic Sitting Balance Good Standing Static Balance Good Dynamic Standing Balance Fair plus Additional Balance Assessments Comments with FWW Safety Judgement Good Activity Tolerance Good Equipment Present A pump Additional Equipment Present R AFO Post Treatment Pain Intensity 5 0-10 Variance Documentation see PT note Total Treament Time 25 min (8-127) Total Minutes 25 Total Units 2 PT Technical Record Comment PT NOTE S: Pt denied any pain at rest but c/o R hip/thigh burning with increased ambulation. Agreed to skilled PT. Cleared and premedicated by RAHEL Viveros. O: Received awake in semi-wang with at bedside. See tech record for assist levels. Transfered to EOB with HOB elevated. Donned shoes and AFO with max A. Gait training with FWW, 3 point gait, decreased alisia, downward gaze; VCs to encourage reciprocal gait pattern and fwd gaze, pt demo'd fair return. Noted IR during 180 degree turn. Pt education on hip precautions and proper turning sequence to maintain neutral R LE positioning. Returned back to room. Assisted to chair. Performed seated R ankle therex. Left up in chair, tray table in front, call light and all necessities within reach. Informed RN. A: Pt naima tx well. Increased gait distance and able to improve gait pattern from 3 point gait to slight reciprocal gait. No LOB. Pt c/o R thigh burning with increased ambulation. P: Continue with POC. Stair training next session.
[2018-05-23 13:50] VITALS: BP 160/70; PULSE 93; RESP 18
[2018-05-23 14:38] VITALS: BP 140/66; PULSE 89; RESP 17
--- NOTE | 2018-05-23 15:35 | NUR ---
PT NOTE [facility] Patient: Montse Michel : 1940 Age/Sex: 78/F Unit#: [id number] Room/Bed: User: Jolene Luca OROSCO Date: 05/23/18 15:05 Type: PT Technical Record Therapy day number 2 Subjective Denies pain Pain Scale NUMERIC Pain Intensity 0 (0-10) Patient Stated Goal for Pain Relief 0 (0-10) Pain Level Comment denied pain at rest Supine to Sit Supervised Transfer Sit to Stand Ability Supervised Toileting Ability Modified Independent Additional Mobility Comments left at EOB Patient uses wheelchair Not Applicable Gait Training Start Time 15:05 Gait Assist Levels Supervised Assistive Devices Front Wheel Walker Ambulation Distance 180 feet Additional Gait Comments encouraged reciprocal gait pattern, improved gait pattern Gait Training End Time 15:35 Total Gait Training Treatment Time 30 min (8-127) Weight Bearing Assessment Label Bilat Lower Extremity Weight Bearing Status Weight Bearing as Naima Stair Climbing Ability Contact Guard Assist Number of Stairs 13 Stairs Additional Stairs Assist Comments step to pattern, side stepping, 2 hands on 1 rail Static Sitting Balance Good Dynamic Sitting Balance Good Standing Static Balance Good Dynamic Standing Balance Fair plus Additional Balance Assessments Comments with FWW Safety Judgement Good Activity Tolerance Good Equipment Present A pump Additional Equipment Present R AFO Post Treatment Pain Intensity 0 0-10 Variance Documentation see PT note Total Treament Time 30 min (8-127) Total Minutes 30 Total Units 2 PT Technical Record Comment PT NOTE S: "I'm ready." Agreed to skilled PT. Cleared and premedicated by RAHEL Viveros. O: Received awake in semi-wang, at bedside. See tech record for assist levels. Max A to venancio shoes and AFO. Assisted to bathroom; I with pericare. Gait training with FWW; encouraged reciprocal gait pattern; gait pattern improved with continuous gait training. Stair training x13 steps; step to pattern, sidestepping with 2 hands on 1 hand rail. No LOB. VCs on R glute contraction to increase stability; pt demo'd good understanding/return. Returned back to EOB. GRADUATE NURSE entered to assist with dressing. Left at EOB with NSG. A: Pt naima tx well. Improved assist level with stair training. Min c/o pain with stair training. Continued to improved gait pattern this tx session. P: Will discuss possible DC from PT services with supervising PT as a result of all goals met. Pt has all appropriate DMEs.
--- NOTE | 2018-05-23 15:58 | NUR ---
DISCHARGE NOTE IV D/C. Vitals stable. Discharge instructions given to pt and understood. of pt is her ride home. Right hip prenio dressing dry and intact. Pt left with her own wheelchair from home. Pt discharged from unit by yoghurt maker via wheelchair. All belongings with pt and her .
[2018-05-23] MEDS ORDERED: MAGNESIUM HYDROXIDE 30ML CUP PO SCH (21:00)
== END 2018-05-23 15:45 | disposition home or self-care (01) ==
LOC: SDS 11:49 → EDSTATUS 14:30 → SDS 17:06 → REC 17:06 → MS1 19:56
PROVIDERS: ADMIT Orthopaedic Surgery; ATTEND Orthopaedic Surgery
DX: G57.01 Lesion of sciatic nerve, right lower limb (principal); Z96.641 Presence of right artificial hip joint; I25.10 Atherosclerotic heart disease of native coronary artery without angina pectoris; E11.9 Type 2 diabetes mellitus without complications
CPT/HCPCS: 64712; 80048; 85025; 85610; 85730; 93005; 97110; 97116; 97161; 97530; 99217; G0378; J0131; J0171; J0690; J0735; J1100; J1170; J1200; J1885; J2175; J2250; J2274; J2405; J3010; J3370; J7120; J7512; J2710